=== PATIENT | female | born 1970 | race Caucasian/White ===

== ENCOUNTER 2019-10-16 14:07 | Emergency (ER) | payer BC, OTHER ==
[~2019-10-16] VITALS: Ht 157.5 cm; Wt 119.3 kg
[~2019-10-16 14:07] MED LIST: CEFD300 PO; Diflucan100 MG PO; HYDACE5 PO; IBUP400 PO; NITROFURANTOIN; NORCO; PROGESTERONE; VENL75ER
[2019-10-16] MEDS ORDERED: Norco 10-325 T1 EACH PO (16:31)
== END 2019-10-16 16:48 | disposition home or self-care (01) ==
LOC: ER 14:07
DX: S01.511A Laceration without foreign body of lip, initial encounter (principal); G43.909 Migraine, unspecified, not intractable, without status migrainosus; Z79.899 Other long term (current) drug therapy; W01.0XXA Fall on same level from slipping, tripping and stumbling without subsequent striking against object, initial encounter
CPT/HCPCS: 12011; 99282-25

== ENCOUNTER 2021-01-28 14:33 | Emergency (ER) | payer BC ==
[~2021-01-28] VITALS: Ht 160 cm; Wt 135.2 kg
[~2021-01-28 14:33] MED LIST changes: +Norco 10-325 T1 EACH PO; +OMEP20ER PO; +SERT100 PO
[2021-01-28 15:28] LABS: BASOPHILS ABSOLUTE AUTO 0.02 K/mm3 (0.00-0.23); BASOPHILS PERCENT AUTO 0 % (0-2); EOSINOPHILS PERCENT AUTO 1 % (0-6); Hematocrit 35.2 % (33.0-51.0); Hemoglobin 10.7 g/dL (11.5-16.0); IMMATURE GRAN ABSOLUTE AUTO 0.05 K/mm3 (0.00-0.10); IMMATURE GRAN PERCENT AUTO 1 % (0-1); LYMPHOCYTES ABSOLUTE AUTO 1.13 K/mm3 (0.84-5.20); LYMPHOCYTES PERCENT AUTO 11 % (21-46); MONOCYTES ABSOLUTE AUTO 0.67 K/mm3 (0.16-1.47); MONOCYTES PERCENT AUTO 6 % (4-13); Mean Corpuscular HGB 25.7 pg (26.0-34.0); Mean Corpuscular HGB Conc 30.4 g/dL (31.5-36.5); Mean Corpuscular Volume 84 fL (80-100); Mean Platelet Volume 8.4 fL (9.1-12.4); NEUTROPHILS ABSOLUTE AUTO 8.75 K/mm3 (1.96-9.15); NEUTROPHILS PERCENT AUTO 82 % (41-73); Platelet Count 471 K/mm3 (150-400); RDW Coefficient Variation 15.4 % (11.7-14.2); RDW Standard Deviation 46.8 fL (35.1-46.3); Red Blood Cell Count 4.17 M/mm3 (3.80-5.20); White Blood Cell Count 10.72 K/mm3 (4.00-11.30)
[2021-01-28 15:34] LABS: Alanine Aminotransfer (ALT/SGP 31 U/L (12-78); Albumin/Globulin Ratio 0.6 (0.8-1.8); Alk Phos 165 U/L (50-136); Anion Gap 7 mmol/L (6-16); Aspartate Aminotrans (AST/SGOT 30 U/L (12-37); Bilirubin, Total 0.3 mg/dL (0.1-1.0); Blood Urea Nitrogen 17 mg/dL (8-24); Bun/Creatinine Ratio 25.7 (12.0-20.0); CO2, Blood 31 mmol/L (21-32); Calcium, Blood 9.2 mg/dL (8.5-10.1); Chloride, Blood 104 mmol/L (98-108); Creatinine, Blood 0.66 mg/dL (0.40-1.00); Globulin, Blood 4.7 g/dL (2.2-4.0); Glomerular Filtration Rate >60 (60-); Glucose, Blood 121 mg/dL (70-99); Potassium, Blood 3.5 mmol/L (3.5-5.5); Sodium, Blood 142 mmol/L (136-145); Total Protein, Blood 7.7 g/dL (6.4-8.2)
[2021-01-28] MEDS ORDERED: HYDCHL25 PO (17:00)
== END 2021-01-28 17:01 | disposition home or self-care (01) ==
LOC: ER 14:33
PROVIDERS: Physician Assistant
DX: R60.0 Localized edema (principal); Z79.899 Other long term (current) drug therapy
CPT/HCPCS: 36415; 71046; 80053; 83880; 84484; 85025; 85379; 93005; 93010; 93970; 99284-25

== ENCOUNTER 2021-12-26 03:49 | Inpatient (IN) | payer BC ==
[~2021-12-26] VITALS: Ht 157.5 cm; Wt 150.4 kg
[~2021-12-26 03:49] MED LIST changes: +HYDCHL25 PO
[2021-12-26] MEDS ORDERED: METAXALONE800 M1 PO (04:21)
[2021-12-26] MEDS ORDERED: PRED20 PO (04:21)
[2021-12-26] MEDS ORDERED: PREGABALIN25 MG PO (04:21)
[2021-12-26] MEDS ORDERED: LOSA50 PO (04:21)
[2021-12-26] MEDS ORDERED: HYDROCODONE-AC1 EAC7 PO (04:23)
[2021-12-26 05:37] LABS: BASOPHILS ABSOLUTE AUTO 0.03 K/mm3 (0.00-0.23); BASOPHILS PERCENT AUTO 0 % (0-2); EOSINOPHILS ABSOLUTE AUTO 0.05 K/mm3 (0.00-0.68); EOSINOPHILS PERCENT AUTO 0 % (0-6); Hematocrit 42.5 % (33.0-51.0); Hemoglobin 13.2 g/dL (11.5-16.0); IMMATURE GRAN ABSOLUTE AUTO 0.08 K/mm3 (0.00-0.10); IMMATURE GRAN PERCENT AUTO 1 % (0-1); LYMPHOCYTES ABSOLUTE AUTO 0.89 K/mm3 (0.84-5.20); LYMPHOCYTES PERCENT AUTO 6 % (21-46); MONOCYTES ABSOLUTE AUTO 0.82 K/mm3 (0.16-1.47); MONOCYTES PERCENT AUTO 6 % (4-13); Mean Corpuscular HGB 26.1 pg (26.0-34.0); Mean Corpuscular HGB Conc 31.1 g/dL (31.5-36.5); Mean Corpuscular Volume 84 fL (80-100); Mean Platelet Volume 9.2 fL (9.1-12.4); NEUTROPHILS ABSOLUTE AUTO 12.82 K/mm3 (1.96-9.15); NEUTROPHILS PERCENT AUTO 87 % (41-73); Platelet Count 334 K/mm3 (150-400); RDW Coefficient Variation 16.2 % (11.7-14.2); RDW Standard Deviation 49.8 fL (35.1-46.3); Red Blood Cell Count 5.05 M/mm3 (3.80-5.20); White Blood Cell Count 14.69 K/mm3 (4.00-11.30)
[2021-12-26 05:46] LABS: Anion Gap 7 mmol/L (6-16); Blood Urea Nitrogen 19 mg/dL (8-24); Bun/Creatinine Ratio 27.6 (12.0-20.0); CO2, Blood 27 mmol/L (21-32); CPK Creatine Kinase 356 U/L (26-193); Calcium, Blood 9.3 mg/dL (8.5-10.1); Chloride, Blood 104 mmol/L (98-108); Creatinine, Blood 0.69 mg/dL (0.40-1.00); Glomerular Filtration Rate >60 (60-); Glucose, Blood 104 mg/dL (70-99); Potassium, Blood 3.4 mmol/L (3.5-5.5); Sodium, Blood 138 mmol/L (136-145)
[2021-12-26 06:04] LABS: Creatine Kinase MB 1.9 ng/mL (0.0-3.6); Creatine Kinase MB Index 0.5 (0.0-4.0)
[2021-12-26 07:50] LABS: International Normalized Ratio 1.02; Prothrombin Time Results 10.7 Sec (9.7-11.5)
--- NOTE | 2021-12-26 09:14 | NUR ---
12/26/21 0914 John Winslow MULTIPLE ANTIBOTICS GIVEN IN ED BKA PROCEDURE CHANGED TO I&D
--- NOTE | 2021-12-26 10:24 | NUR ---
ASSUMED CARE: PT ADMITTED FROM ED THEN OR FOR I AND D OF LEFT CALF. RN REMOVED DRESSING AND TOOK PICTURES OF PT'S WOUND, REDNESS DEMARCATED. VALVE ASSEMBLER CONSULT ON PT WELL AND VALVE ASSEMBLER CAME TO SEE PT WITH PLANS TO TRANSFER TO HIGHER LEVEL OF CARE. DR KAUR WORKING ON CALLING OTHER FACILITIES. CIRCUMFERENCE OF ANKLE AND CALF DONE TO KEEP TRACK OF CHANGES. NO OPEN WOUND NOTED BESIDE SURGICAL SITE. PT STATES SHE HAS CHRONIC CRACKS IN HEELS THAT HAS BEEN PRESENT FOR YEARS REBEKA RN AT BEDSIDE PLACING PICC AT THIS TIME. HOSPITALIST IN ROOM TO SEE PT AT THIS TIME. PT CURRENTLY SINUS TACH AT 103 AND ON 2L O2. DRY COUGH NOTED BUT NOT PRODUCTIVE.
--- NOTE | 2021-12-26 11:31 | NUR ---
CHECKED ON PT AND MARKED AREA OF LEG WHERE CIRCUMFERENCES WERE TAKEN. CIRCUMFERENCES WERE UNCHANGED BUT REDNESS TO LEG HAS GOTTEN BRIGHTER. DOES NOT APPEAR TO HAVE SPREAD AND PT DOES NOT C/O WORSENING PAIN. DR KAUR MADE AWARE. NO NEW ORDERS AT THIS TIME.
--- NOTE | 2021-12-26 13:30 | NUR ---
DR BRINK CAME TO SEE PT AND VIEWED PT'S LEFT LEG. STATES THAT LEG DOES NOT LOOK MUCH DIFFERENT THAN IN OR. DR MADE AWARE THAT REDNESS HAS EXPLANDED BEYOND DEMARCATION OF THIGH AND BOTTOM OF FOOT. DISCUSSED WITH DR KAUR WELL. DR KAUR AWARE OF CURRENT VITALS AND WANTS PT TO STILL RECIEVE ALBUMIN. DR NOTIFIED OF LACTIC ACID WELL.
--- NOTE | 2021-12-26 18:38 | NUR ---
SHIFT SUMMARY: PT'S WOUND DEMARCATED WITH PICTURES IN CHART. HAVE BEEN MONITORING COLOR AND CHANGES TO WOUND. MEDICATED FOR HEADACHE X1. WOUND DRESSING CHANGED X1. DR BRINK CAME TO SEE PT AND HAS EVALUATED CHANGES AND PLANS TO MONITOR PT IN AM. VSS. NO ACUTE NEEDS AT THIS TIME.
--- NOTE | 2021-12-26 20:02 | NUR ---
ASSUMED CARE PATIENT LYING IN BED AWAKE AND ON CELL PHONE. GREETS STAFF UPON ENTERING ROOM. LR INF @ 125ML/HR TO EARNEST PICC LINE. 20G TO RT HAND PATENT AND FLUSHED WITH 10ML NS. PATIENT IS ABLE TO TURN SELF TO HIGH SIDES IN BED. LAROSE PATENT AND DRAINING TO GRAVITY. WOUND DRESSING OF ABD PADS AND COBAN TO LLE INCISION FROM I&D REPLACED AT 1630-TO BE CHANGED ONCE PER SHIFT. VS REMAIN STABLE AT THIS TIME W/ HR 90'S-100'S, SBP 100'S-110'S, MAPS 70'S-80'S, SPO2 GREATER THAN 92%. BEDSIDE REPORT COMPLETED WITH CONCETTA ALVAREZ. LLE SWELLING AND REDNESS ASSESSED AND REMARKED WITH WHERE HAD ALREADY ASSESSED. PATIENT HAS NO REPORTS OF PAIN IN THE LIMB.
--- NOTE | 2021-12-26 20:29 | NUR ---
WOUND ASSESSMENT NO CHANGES TO OUTLINES OR PULSES ON LLE. ANKLE MEASURMENT 11IN AND CALF MEAUREMENT 19IN-UNCHANGED FROM PREVIOUS MEASURMENT. TEMP 99.9F TEMPORAL.
--- NOTE | 2021-12-26 22:11 | NUR ---
DRESSING CHANGE/WOUND ASSESSMENT L DP PULSE DECREASED FROM FAINT TO DOPPLER, PT REMAINS BY DOPPLER. PURPLE DISCOLORATION TO INSIDE OF FOOT DARKENING. CAP REFILL IN THAT SPOT ABSENT. PATIENT DENIES PAIN. TEMP 99.9F TEMPORAL. VSS ON 2L NC. NO SPREADING OF REDNESS NOTED. SEROSANGUINOUS DRAINAGE PRSENT FROM LATERAL INCISION. DRESSING CHANGED USING 3 ABD PADS AND COBAN. DRIFLO UNDERNEATH LEG REPLACE.
--- NOTE | 2021-12-27 00:09 | NUR ---
WOUND ASSESSMENT REDNESS, SWELLING, AND PULSES REMAIN UNCHANGED. TEMP INCREASED TO 100.2F TEMPORAL. A&O X 4. SENSATION UNCHANGED.
[2021-12-27 05:20] LABS: BASOPHILS ABSOLUTE AUTO 0.03 K/mm3 (0.00-0.23); BASOPHILS PERCENT AUTO 0 % (0-2); EOSINOPHILS ABSOLUTE AUTO 0.01 K/mm3 (0.00-0.68); EOSINOPHILS PERCENT AUTO 0 % (0-6); Hematocrit 26.2 % (33.0-51.0); IMMATURE GRAN ABSOLUTE AUTO 0.21 K/mm3 (0.00-0.10); IMMATURE GRAN PERCENT AUTO 2 % (0-1); LYMPHOCYTES ABSOLUTE AUTO 0.97 K/mm3 (0.84-5.20); LYMPHOCYTES PERCENT AUTO 8 % (21-46); MONOCYTES ABSOLUTE AUTO 0.99 K/mm3 (0.16-1.47); MONOCYTES PERCENT AUTO 8 % (4-13); Mean Corpuscular HGB 26.1 pg (26.0-34.0); Mean Corpuscular HGB Conc 30.5 g/dL (31.5-36.5); Mean Corpuscular Volume 86 fL (80-100); Mean Platelet Volume 9.2 fL (9.1-12.4); NEUTROPHILS ABSOLUTE AUTO 9.78 K/mm3 (1.96-9.15); NEUTROPHILS PERCENT AUTO 81 % (41-73); Platelet Count 218 K/mm3 (150-400); RDW Coefficient Variation 16.7 % (11.7-14.2); RDW Standard Deviation 52.5 fL (35.1-46.3); Red Blood Cell Count 3.06 M/mm3 (3.80-5.20); White Blood Cell Count 11.99 K/mm3 (4.00-11.30)
--- NOTE | 2021-12-27 05:25 | NUR ---
SHIFT SUMMARY PULSE IN LT DP FAINT TO PALPATION AT BEGINNING OF SHIFT; SINCE THEN HAS DECREASED TO DOPPLER AND MAINATINED. LT PT PULSE BY DOPPLER T/O SHIFT. NO CHANGES TO SPREADING REDNESS OUTSIDE OF DEMARCATION LINES. WOUND DRESSING CHANGED DURING SHIFT. LAROSE REMAINED PATENT DRAINING YELLOW CLOUDY URINE. NO BM DURING SHIFT. PATIENT REMAINED NPO DESPITE ORAL MEDICATINS. MAX TEMP 101.5F WITH TYLENOL 650MG PO GIVEN; TEMP DECREASED TO 99'SF. WHEN PATIENT FELL ASLEEP SPO2 DECREASEDTO 80'S- 2L NC PLACED ON PATIENT. LR STILL INF @ 125ML/HR TO EARENST PICC LINE. NO OTHER MAJOR CHANGES DURING SHIFT.
[2021-12-27 05:35] LABS: Alanine Aminotransfer (ALT/SGP 34 U/L (12-78); Albumin, Blood 2.9 g/dL (3.4-5.0); Albumin/Globulin Ratio 0.9 (0.8-1.8); Alk Phos 61 U/L (50-136); Anion Gap 4 mmol/L (6-16); Aspartate Aminotrans (AST/SGOT 30 U/L (12-37); Bilirubin, Total 0.6 mg/dL (0.1-1.0); Blood Urea Nitrogen 10 mg/dL (8-24); Bun/Creatinine Ratio 13.9 (12.0-20.0); CO2, Blood 29 mmol/L (21-32); Chloride, Blood 109 mmol/L (98-108); Creatinine, Blood 0.72 mg/dL (0.40-1.00); Globulin, Blood 3.2 g/dL (2.2-4.0); Glomerular Filtration Rate >60 (60-); Glucose, Blood 102 mg/dL (70-99); Potassium, Blood 3.1 mmol/L (3.5-5.5); Sodium, Blood 142 mmol/L (136-145); Total Protein, Blood 6.1 g/dL (6.4-8.2); Vancomycin, Trough 15.4 ug/mL (5.0-10.0)
--- NOTE | 2021-12-27 07:15 | NUR ---
Assumed care of pt at 0700 from Deana Renee RN. Pt A&O x 4. Answers questions. Follows commands. Verbalizes needs. Pleasant and cooperative with care. SpO2 90% or greater with 3 LPM NC. SR per monitor. BP stable. LLE not as red as this RN noted during previous day shift. Ankle measurement 10.25 inches, which is decrease from previously notated 11 inches on white board. LLE pulses identified with doppler. Pt states that she is not currently having any pain to LLE. States low back pain. Bed in lowest position. Call light in reach. Pt denies need at this time.
[2021-12-27 09:18] LABS: Hematocrit 26.7 % (33.0-51.0); Hemoglobin 8.2 g/dL (11.5-16.0)
--- NOTE | 2021-12-27 13:41 | NUR ---
All providers have been in to see patient. Dr Smart aware of drop in H/H, states he is not concerned that patient is bleeding into leg. States to continue with dressing changes of ABD and coban QSHIFT, or more often if needed. States PT/OT may be started for patient and weightbearing as tolerated for LLE. States pt may transfer to PCU if rest of care team is okay with it. Pt is now on regular diet. Home [place] added back to medication regmien. Pt worked with physical therapy and was able to stand using walker and 2 person assist. Physical therapy states that patient is able to stand and transfer from bed to chair or commode if she needs to. Dr Pierce states plan to recheck H/H at 1500, will evaluate transfer out of ICU afterwards.
[2021-12-27 15:33] LABS: Hematocrit 26.8 % (33.0-51.0); Hemoglobin 8.3 g/dL (11.5-16.0)
--- NOTE | 2021-12-27 18:02 | NUR ---
SUMMARY Pt is now PCU status. Neuro: A&O x 4. Answers questions. Follows commands. Verbalizes needs. Pleasant and cooperative with care. Numbness to anterior left leg and dorsal left foot, unchanged from initial assessment. Musculoskeletal: Worked with physical therapy today, tolerated well. Mobilizes with one person and walker. Sat in chair for 2 hours today. Respiratory: Clear in upper lobes, diminished otherwise. SpO2 90% or greater room air. Dry, nonproductive cough. Cardiac: ST per monitor. BP stable. Pulses identifyable on BLE, LLE with doppler which is unchaged from this AM. Capillary refill less than 3 seconds. GI: Hypoactive BT. Pt did not have BM this shift. Tolerating regular diet well. : Palma in place draining clear yellow urine Skin: Unchanged from initial assessment. Psych: Pt updating her family using personal phone.
[2021-12-28 04:35] LABS: BASOPHILS ABSOLUTE AUTO 0.06 K/mm3 (0.00-0.23); BASOPHILS PERCENT AUTO 0 % (0-2); EOSINOPHILS ABSOLUTE AUTO 0.14 K/mm3 (0.00-0.68); EOSINOPHILS PERCENT AUTO 1 % (0-6); Hemoglobin 8.1 g/dL (11.5-16.0); IMMATURE GRAN ABSOLUTE AUTO 0.45 K/mm3 (0.00-0.10); IMMATURE GRAN PERCENT AUTO 3 % (0-1); LYMPHOCYTES ABSOLUTE AUTO 1.06 K/mm3 (0.84-5.20); LYMPHOCYTES PERCENT AUTO 6 % (21-46); MONOCYTES ABSOLUTE AUTO 1.01 K/mm3 (0.16-1.47); MONOCYTES PERCENT AUTO 6 % (4-13); Mean Corpuscular HGB 26.8 pg (26.0-34.0); Mean Corpuscular HGB Conc 31.2 g/dL (31.5-36.5); Mean Corpuscular Volume 86 fL (80-100); Mean Platelet Volume 9.2 fL (9.1-12.4); NEUTROPHILS ABSOLUTE AUTO 14.17 K/mm3 (1.96-9.15); NEUTROPHILS PERCENT AUTO 84 % (41-73); NRBC ABSOLUTE 0.03 K/mm3 (0.00-0.02); NRBC Auto 0.2 /100 WBC (0.0-0.2); Platelet Count 233 K/mm3 (150-400); RDW Coefficient Variation 16.7 % (11.7-14.2); RDW Standard Deviation 53.1 fL (35.1-46.3); Red Blood Cell Count 3.02 M/mm3 (3.80-5.20); White Blood Cell Count 16.89 K/mm3 (4.00-11.30)
[2021-12-28 04:52] LABS: Anion Gap 3 mmol/L (6-16); Blood Urea Nitrogen 11 mg/dL (8-24); Bun/Creatinine Ratio 14.7 (12.0-20.0); CO2, Blood 29 mmol/L (21-32); Calcium, Blood 8.3 mg/dL (8.5-10.1); Chloride, Blood 108 mmol/L (98-108); Creatinine, Blood 0.75 mg/dL (0.40-1.00); Glomerular Filtration Rate >60 (60-); Glucose, Blood 115 mg/dL (70-99); Potassium, Blood 3.2 mmol/L (3.5-5.5); Sodium, Blood 140 mmol/L (136-145)
--- NOTE | 2021-12-28 07:15 | NUR ---
Assumed care of pt at 0700. Report received from Rosana HYLTON. Pt A&O x 4. Answers questions. Follows commands. Verbalizes needs. Pt is pleasant and cooperative with care. Pt on room air while awake. SR per monitor. BP stable. Bed in lowest position. Call light in reach. Pt denies need at this time.
--- NOTE | 2021-12-28 11:52 | NUR ---
Dr Elam in to see patient. Provider cleansed wound with peroxide and changed dressing. Provider orders for dressing to be changed more frequently than once per shift. Patient worked with physical therapy and ambulated to bathroom with assistance. Pt sitting up in chair at this time.
[2021-12-28 14:05] LABS: Vancomycin, Trough 17.6 ug/mL (5.0-10.0)
--- NOTE | 2021-12-28 18:02 | NUR ---
SUMMARY Pt is now PCU status. Neuro: A&O x 4. Answers questions. Follows commands. Verbalizes needs. Pleasant and cooperative with care. Numbness to anterior left leg and dorsal left foot, unchanged from initial assessment. Musculoskeletal: Worked with physical therapy today, tolerated well. Mobilizes independently between recliner and bed. Asks for assitance with toileting. Pt has walking boot now for ambulation per orders from Dr Smart. Respiratory: Clear in upper lobes, diminished otherwise. SpO2 90% or greater room air. Dry, nonproductive cough. Cardiac: SR per monitor. BP stable. Pulses identifyable on BLE, LLE with doppler which is unchaged from this AM. Capillary refill less than 3 seconds. GI: Hypoactive BT. Pt did not have BM this shift. Tolerating regular diet well. : Palma in place draining clear yellow urine Skin: Unchanged from initial assessment. Dressing changes for LLE more frequent, every 8 hours, per orders from Dr Smart. Dressed with ABD pad, Kerlex, and Coban. Psych: Pt updating her family using personal phone. Visited with family members outside window.
--- NOTE | 2021-12-29 00:39 | NUR ---
LL LEG DRESSING CHANGED AT 0000. C/D/I
[2021-12-29 03:45] LABS: BASOPHILS ABSOLUTE AUTO 0.03 K/mm3 (0.00-0.23); BASOPHILS PERCENT AUTO 0 % (0-2); EOSINOPHILS ABSOLUTE AUTO 0.26 K/mm3 (0.00-0.68); EOSINOPHILS PERCENT AUTO 2 % (0-6); Hematocrit 26.6 % (33.0-51.0); Hemoglobin 8.2 g/dL (11.5-16.0); IMMATURE GRAN ABSOLUTE AUTO 0.57 K/mm3 (0.00-0.10); IMMATURE GRAN PERCENT AUTO 4 % (0-1); LYMPHOCYTES ABSOLUTE AUTO 1.15 K/mm3 (0.84-5.20); LYMPHOCYTES PERCENT AUTO 8 % (21-46); MONOCYTES ABSOLUTE AUTO 0.84 K/mm3 (0.16-1.47); MONOCYTES PERCENT AUTO 6 % (4-13); Mean Corpuscular HGB 26.5 pg (26.0-34.0); Mean Corpuscular HGB Conc 30.8 g/dL (31.5-36.5); Mean Corpuscular Volume 86 fL (80-100); Mean Platelet Volume 9.1 fL (9.1-12.4); NEUTROPHILS ABSOLUTE AUTO 11.18 K/mm3 (1.96-9.15); NEUTROPHILS PERCENT AUTO 80 % (41-73); NRBC ABSOLUTE 0.02 K/mm3 (0.00-0.02); NRBC Auto 0.1 /100 WBC (0.0-0.2); Platelet Count 277 K/mm3 (150-400); RDW Coefficient Variation 16.6 % (11.7-14.2); RDW Standard Deviation 52.7 fL (35.1-46.3); White Blood Cell Count 14.03 K/mm3 (4.00-11.30)
[2021-12-29 03:59] LABS: Anion Gap 6 mmol/L (6-16); Blood Urea Nitrogen 12 mg/dL (8-24); Bun/Creatinine Ratio 14.6 (12.0-20.0); CO2, Blood 27 mmol/L (21-32); Calcium, Blood 8.5 mg/dL (8.5-10.1); Chloride, Blood 108 mmol/L (98-108); Creatinine, Blood 0.82 mg/dL (0.40-1.00); Glomerular Filtration Rate >60 (60-); Glucose, Blood 114 mg/dL (70-99); Potassium, Blood 3.3 mmol/L (3.5-5.5); Sodium, Blood 141 mmol/L (136-145)
--- NOTE | 2021-12-29 10:29 | NUR ---
0700: SBAR FROM NIGHT RN. PT RESTING IN ROOM, CALL LIGHT IN REACH, NO DISTRESS NOTED. [id number]: ASSISTED PT TO AMBULATE WITHIN ROOM. PT USED RESTROOM, LARGE BOWEL MOVEMENT, ASSISTED PT WITH PERINEAL CARE PER REQUEST. PT ASSISTED BACK TO BED. SURGEON AT BEDSIDE TO EVALUATE WOUND. CHANGED WOUND, PER MD SHOULD BE Q12HR DRESSING CHANGES. 1030: SBAR TO COMMERCIAL LITIGATION ATTORNEY.
--- NOTE | 2021-12-29 11:58 | NUR ---
1145: PT BROUGHT TO PCU ROOM 5 WITH PERSONAL BELONGINGS. THIS RN PROGRAMMED PUMPS AT PCU FOR CONTINUITY OF IVF/ABX. PT TOLERATED WELL.
--- NOTE | 2021-12-29 16:04 | NUR ---
END OF SHIFT: PATIENT ARRIVED FROM ICU TODAY. REPORT WAS RECIVED FROM Jaden HODGE RN, PATIENT HAS BEEN AFEVRILE, DENIES CHEST PAIN, SOB, PAIN AT THE SURGICAL SITE. PATIENT IS S/P DAY THREE DRESSING AND PHOTOS PREFORMED 12/29/21. PATIENT HAS CHRONIC PAIN WHICH IS MEDICATED WITH NORCO Q6 WHICH SHE REALLY ONLY TAKES UP TO THREE TIMES A DAY. WHICH IS STATED HOME DOSE. PATIENT IS COVID POSITIVE, HOWEVER IS ON RA AND SATURATING 98% OR GREATER UNLESS SHE IS COUGHING, WHICH IS MEDICATED PER EMAR. LLE SURGICAL SITE AROUND THE ENITRE CIRCUMFRANCE OF THE LEFT CALF. NONPITTING EDEMA IN THE LEFT ANKLE, WHICH IS SLIGHTLY WORSE THAN PREVIOUS PHOTOS. REDDNESS DECREASED AT ADMIT WAS UP TO HER GROIN, AND REDNESS NOW IS TO KNEE/MURGUIA. DECREASED SENSATION IN THAT FOOT, FAINT PULSES BILATERALLY. BRISK CAP REFILL. PATIENT IN RECLINER WITH LLE ELEVATED. SCD'S TO RIGHT CALF, STARTED TODAY. RECIVING MULTIPLE DOSES OF ANTIBIOTICS VIA IV THROUGH PICC ON THE RIGHT. WILL CONTINUE TO MONITOR.
[2021-12-30 05:15] LABS: Hematocrit 28.6 % (33.0-51.0); Hemoglobin 8.8 g/dL (11.5-16.0); Mean Corpuscular HGB 26.5 pg (26.0-34.0); Mean Corpuscular HGB Conc 30.8 g/dL (31.5-36.5); Mean Corpuscular Volume 86 fL (80-100); Mean Platelet Volume 9.5 fL (9.1-12.4); NRBC ABSOLUTE 0.03 K/mm3 (0.00-0.02); NRBC Auto 0.2 /100 WBC (0.0-0.2); Platelet Count 355 K/mm3 (150-400); RDW Coefficient Variation 16.5 % (11.7-14.2); RDW Standard Deviation 51.9 fL (35.1-46.3); Red Blood Cell Count 3.32 M/mm3 (3.80-5.20); White Blood Cell Count 12.51 K/mm3 (4.00-11.30)
[2021-12-30 05:35] LABS: Anion Gap 6 mmol/L (6-16); Blood Urea Nitrogen 12 mg/dL (8-24); Bun/Creatinine Ratio 15.6 (12.0-20.0); CO2, Blood 27 mmol/L (21-32); Calcium, Blood 8.6 mg/dL (8.5-10.1); Chloride, Blood 108 mmol/L (98-108); Creatinine, Blood 0.77 mg/dL (0.40-1.00); Glomerular Filtration Rate >60 (60-); Glucose, Blood 108 mg/dL (70-99); Potassium, Blood 3.7 mmol/L (3.5-5.5); Sodium, Blood 141 mmol/L (136-145)
[2021-12-30 06:25] LABS: BASOPHILS PERCENT MAN 0 % (0-2); METAMYELOCYTE ABSOLUTE MAN 0.12 K/mm3 (0.00-0.00)
[2021-12-30 06:28] LABS: BAND PERCENT MAN 3 % (0-8); EOSINOPHILS ABSOLUTE MAN 0.37 K/mm3 (0.00-0.68); EOSINOPHILS PERCENT MAN 3 % (0-6); LYMPHOCYTES ABSOLUTE MAN 1.75 K/mm3 (0.84-5.20); LYMPHOCYTES PERCENT MAN 14 % (21-46); METAMYELOCYTE PERCENT MAN 1 % (0-0); MONOCYTES ABSOLUTE MAN 0.25 K/mm3 (0.16-1.47); MONOCYTES PERCENT MAN 2 % (4-13); SEG NEUTROPHILS PERCENT MAN 77 % (41-73); TOTAL CELLS COUNTED 100
--- NOTE | 2021-12-30 06:36 | NUR ---
SHIFT SUMMARY: PATIENT'S VSS, NO PAIN IN LLE, CHRONIC PAIN IN BACK. PATIENT AMBULATES WELL TO TOILET WITH FWW. BILATERAL EDEMA, PAS ON RIGHT CALF AND COMPRESSION BANDAGE ON LEFT. PATIENT REPORTS SHE CAN FEEL PRESSURE ON BOTTOM OF LEFT FOOT BUT CAN'T FEEL PRESSURE ON TOP OF FOOT. MEDICATED PER EMAR. PATIENT HAS LOOSE STOOLS R/T ANTIBIOTIC TREATMENT. GAVE COUGH SYRUP IN AM FOR PERSISTENT DRY COUGH. PICC DRAWS AND FLUSHES. NO ADVERSE EVENTS THIS SHIFT. WILL CONTINUE TO MONITOR AND REPORT TO ONCOMING RN.
[2021-12-30] MEDS ORDERED: BANATROL PLUS1 EAC1 PO (10:14)
[2021-12-30] MEDS ORDERED: VISBIOME 112.51 EACH PO (10:14)
[2021-12-30] MEDS ORDERED: CEPH500 PO (10:14)
--- NOTE | 2021-12-30 18:26 | NUR ---
dishcarge summary: orhteo/ pt/ot, and hosp all agreed to discharge patient with an apppointment with dr tamayo tomorrow. patient denies chest pain, sob. was on RA, wheeled out via wheelcahiar by RAZOR SHARPENER. patients wound was dressed by ordavis and RN.patient had clear understanding of dc instructions, no questions comments or concerns. picc was dc'd WNL. surgical site had decreasing redness and edema still present.
== END 2021-12-30 12:45 | disposition home health service (06) | DRG 853 ==
LOC: ER 03:49 → SURS 03:50 → ER 07:00 → ICUW 09:01 → PCU 12-29 11:45
PROVIDERS: Family Medicine; Internal Medicine; Internal Medicine Critical Care Medicine; Nurse Practitioner Acute Care; Student in an Organized Health Care Education/Training Program; ADMIT Orthopaedic Surgery
PROC: 8E0ZXY6 Isolation (ICD-10-PCS; 2021-12-26)
PROC: 0JBM0ZZ Excision of Left Upper Leg Subcutaneous Tissue and Fascia, Open Approach (ICD-10-PCS; principal; 2021-12-26 07:00)
DX: A41.9 Sepsis, unspecified organism (principal); U07.1 COVID-19; M72.6 Necrotizing fasciitis; L03.116 Cellulitis of left lower limb; E66.2 Morbid (severe) obesity with alveolar hypoventilation; Z68.43 Body mass index [BMI] 50.0-59.9, adult; E87.2 Acidosis; D64.89 Other specified anemias; E87.6 Hypokalemia; R65.20 Severe sepsis without septic shock; I10 Essential (primary) hypertension; M54.9 Dorsalgia, unspecified; G89.29 Other chronic pain; G43.909 Migraine, unspecified, not intractable, without status migrainosus; Z87.442 Personal history of urinary calculi; Z79.52 Long term (current) use of systemic steroids; Z79.899 Other long term (current) drug therapy; Z98.890 Other specified postprocedural states; Z90.49 Acquired absence of other specified parts of digestive tract
CPT/HCPCS: 36415; 36569; 71045; 73701; 80048; 80053; 80202; 82550; 82553; 83605; 83735; 84703; 85014; 85018; 85025; 85610; 85730; 86140; 86141; 86850; 86900; 86901; 87040; 88305; 88331; 94660; 94762; 96365-59; 96368; 96375-59; 97110; 97162; 97166; 97530; 97535; 99285-25; A9270; C1751; J1100; J1170; J1885; J2250; J2370; J2405; J2543; J2704; J3010; J3370; J3480; J7030; J7050; J7120; P9046; Q9967

== ENCOUNTER 2022-01-07 09:11 | Day surgery (SDC) | payer BC ==
[~2022-01-07 09:11] MED LIST changes: +BANATROL PLUS1 EAC1 PO; +CEPH500 PO; +HYDROCODONE-AC1 EAC7 PO; +LOSA50 PO; +METAXALONE800 M1 PO; +PRED20 PO; +PREGABALIN25 MG PO; +VISBIOME 112.51 EACH PO
== END 2022-01-07 22:56 | disposition home or self-care (01) ==
LOC: WOUND 09:11
DX: L03.116 Cellulitis of left lower limb (principal); G47.30 Sleep apnea, unspecified; I10 Essential (primary) hypertension; M19.90 Unspecified osteoarthritis, unspecified site; K21.9 Gastro-esophageal reflux disease without esophagitis; E66.01 Morbid (severe) obesity due to excess calories; Z68.43 Body mass index [BMI] 50.0-59.9, adult; I73.9 Peripheral vascular disease, unspecified; I87.2 Venous insufficiency (chronic) (peripheral); R60.0 Localized edema; M21.372 Foot drop, left foot; Z86.16 Personal history of COVID-19
CPT/HCPCS: G0463

== ENCOUNTER 2022-01-14 06:02 | Day surgery (SDC) | payer BC | END 2022-01-14 23:54 | disposition home or self-care (01) | LOC: WOUND 06:02 | DX: L03.116 Cellulitis of left lower limb (principal); I73.9 Peripheral vascular disease, unspecified; I87.2 Venous insufficiency (chronic) (peripheral); M21.372 Foot drop, left foot | CPT/HCPCS: G0463 ==

== ENCOUNTER 2022-01-16 11:54 | Inpatient (IN) | payer BC ==
[~2022-01-16] VITALS: Ht 157.5 cm; Wt 146.5 kg
[2022-01-16 13:07] LABS: Alanine Aminotransfer (ALT/SGP 31 U/L (12-78); Albumin, Blood 3.7 g/dL (3.4-5.0); Albumin/Globulin Ratio 0.7 (0.8-1.8); Alk Phos 139 U/L (50-136); Anion Gap 9 mmol/L (6-16); Aspartate Aminotrans (AST/SGOT 38 U/L (12-37); BASOPHILS ABSOLUTE AUTO 0.04 K/mm3 (0.00-0.23); BASOPHILS PERCENT AUTO 0 % (0-2); Bilirubin, Total 1.1 mg/dL (0.1-1.0); Blood Urea Nitrogen 15 mg/dL (8-24); Bun/Creatinine Ratio 17.7 (12.0-20.0); CO2, Blood 26 mmol/L (21-32); Calcium, Blood 9.6 mg/dL (8.5-10.1); Chloride, Blood 99 mmol/L (98-108); Creatinine, Blood 0.85 mg/dL (0.40-1.00); EOSINOPHILS ABSOLUTE AUTO 0.06 K/mm3 (0.00-0.68); EOSINOPHILS PERCENT AUTO 0 % (0-6); Globulin, Blood 5.6 g/dL (2.2-4.0); Glomerular Filtration Rate >60 (60-); Glucose, Blood 120 mg/dL (70-99); Hematocrit 39.7 % (33.0-51.0); Hemoglobin 11.9 g/dL (11.5-16.0); IMMATURE GRAN ABSOLUTE AUTO 0.13 K/mm3 (0.00-0.10); IMMATURE GRAN PERCENT AUTO 1 % (0-1); LYMPHOCYTES ABSOLUTE AUTO 2.19 K/mm3 (0.84-5.20); LYMPHOCYTES PERCENT AUTO 12 % (21-46); MONOCYTES ABSOLUTE AUTO 1.17 K/mm3 (0.16-1.47); MONOCYTES PERCENT AUTO 6 % (4-13); Mean Corpuscular HGB 25.7 pg (26.0-34.0); Mean Corpuscular Volume 86 fL (80-100); NEUTROPHILS ABSOLUTE AUTO 14.74 K/mm3 (1.96-9.15); NEUTROPHILS PERCENT AUTO 81 % (41-73); Platelet Count 413 K/mm3 (150-400); Potassium, Blood 3.7 mmol/L (3.5-5.5); RDW Coefficient Variation 16.4 % (11.7-14.2); Red Blood Cell Count 4.63 M/mm3 (3.80-5.20); Sodium, Blood 134 mmol/L (136-145); Total Protein, Blood 9.3 g/dL (6.4-8.2); White Blood Cell Count 18.33 K/mm3 (4.00-11.30)
[2022-01-16 13:15] LABS: International Normalized Ratio 1.1; Prothrombin Time Results 11.5 Sec (9.7-11.5)
[2022-01-16 13:58] LABS: Influenza A, PCR NEGATIVE (NEGATIVE); Influenza B, PCR NEGATIVE (NEGATIVE); Resp Syncytial Virus, PCR NEGATIVE (NEGATIVE)
[2022-01-16 13:59] LABS: SARS-Cov-2 (COVID-19) PCR, MMC POSITIVE (NEGATIVE)
[2022-01-17 01:25] LABS: Source, Urine Clean Catch
[2022-01-17 01:43] LABS: Bilirubin, Urine Neg (Neg); Blood, Urine 1+ (Neg); Glucose Qualitative, Urine Neg (Neg); Ketones, Urine 1+ (Neg); Leukocyte Esterase, Urine Neg (Neg); Nitrite, Urine Neg (Neg); Protein, Urine 1+ (Neg); Specific Gravity, Urine 1.025 (1.003-1.022); Urobilinogen, Urine NORM (Normal)
[2022-01-17 01:50] LABS: Amorphous Light (0-Heavy); Appearance, Urine Hazy (Clear); Bacteria Few /hpf; Color, Urine Yellow (P-Yellow); Mucus Light (0-Heavy); Squamous Epithelial Cells Mod /hpf (Few); White Blood Cells, Urine Rare /hpf (0-5)
--- NOTE | 2022-01-17 05:37 | NUR ---
SHIFT SUMMARY PATIENT ALERT AND ORIENTED. MEDICATED PER EMAR FOR PAIN. HAD NO COMPLAINTS OF SHORTNESS OF BREATH. NO ACUTE ISSUES NOTED OVERNIGHT. CALL LIGHT WITHIN REACH. REPORT GIVEN TO ONCOMING RN.
[2022-01-17 05:55] LABS: BASOPHILS ABSOLUTE AUTO 0.05 K/mm3 (0.00-0.23); BASOPHILS PERCENT AUTO 0 % (0-2); EOSINOPHILS ABSOLUTE AUTO 0.16 K/mm3 (0.00-0.68); EOSINOPHILS PERCENT AUTO 1 % (0-6); Hematocrit 35.7 % (33.0-51.0); Hemoglobin 10.6 g/dL (11.5-16.0); IMMATURE GRAN ABSOLUTE AUTO 0.06 K/mm3 (0.00-0.10); IMMATURE GRAN PERCENT AUTO 1 % (0-1); LYMPHOCYTES ABSOLUTE AUTO 1.23 K/mm3 (0.84-5.20); LYMPHOCYTES PERCENT AUTO 9 % (21-46); MONOCYTES ABSOLUTE AUTO 0.86 K/mm3 (0.16-1.47); MONOCYTES PERCENT AUTO 7 % (4-13); Mean Corpuscular HGB 25.5 pg (26.0-34.0); Mean Corpuscular HGB Conc 29.7 g/dL (31.5-36.5); Mean Corpuscular Volume 86 fL (80-100); Mean Platelet Volume 8.6 fL (9.1-12.4); NEUTROPHILS ABSOLUTE AUTO 10.71 K/mm3 (1.96-9.15); NEUTROPHILS PERCENT AUTO 82 % (41-73); Platelet Count 308 K/mm3 (150-400); RDW Coefficient Variation 16.2 % (11.7-14.2); RDW Standard Deviation 50.6 fL (35.1-46.3); Red Blood Cell Count 4.16 M/mm3 (3.80-5.20); White Blood Cell Count 13.07 K/mm3 (4.00-11.30)
[2022-01-17 06:07] LABS: Alanine Aminotransfer (ALT/SGP 27 U/L (12-78); Albumin/Globulin Ratio 0.6 (0.8-1.8); Alk Phos 107 U/L (50-136); Anion Gap 6 mmol/L (6-16); Aspartate Aminotrans (AST/SGOT 26 U/L (12-37); Bilirubin, Total 0.8 mg/dL (0.1-1.0); Blood Urea Nitrogen 16 mg/dL (8-24); Bun/Creatinine Ratio 22.9 (12.0-20.0); CO2, Blood 27 mmol/L (21-32); Calcium, Blood 8.9 mg/dL (8.5-10.1); Chloride, Blood 106 mmol/L (98-108); Globulin, Blood 4.7 g/dL (2.2-4.0); Glomerular Filtration Rate >60 (60-); Glucose, Blood 114 mg/dL (70-99); Potassium, Blood 3.8 mmol/L (3.5-5.5); Sodium, Blood 139 mmol/L (136-145); Total Protein, Blood 7.7 g/dL (6.4-8.2)
--- NOTE | 2022-01-17 11:06 | NUR ---
PATIENT IS A AND O 4X AND WAS ABLE TO AMBULATE WELL WITH WALKER. PATIENTS REDNESS HAS DECREASED SIGNIFICANTLY SINCE YESTERDAY. PATIENT STILL HAS DRAINAGE THAT IS SEROUS/PURELENT THAT SATURATES KRELIX GAUZE UP TO ABOUT AN ORANGE SIZE OF DRESSING.
--- NOTE | 2022-01-17 13:27 | NUR ---
Pt. is sitting up and eating lunch. Pt. welcomes my visit. Pt. is pleasant but is unsettled by the uncertainties of her diagnosis. Listen empathetically and devlop rapport. Explore personal issues of babs and belief. Pt. displays evidence of a confidence that God is in control of her health. [place] for Pt. Pt. verbalizes gratitude forthe spiritual care visit.
[2022-01-17 13:28] LABS: Vancomycin, Trough 18.4 ug/mL (5.0-10.0)
--- NOTE | 2022-01-18 04:10 | NUR ---
SHIFT SUMMARY NO ACUTE CHANGES THIS EVENING. DRESSING TO LLE REMAINED C/D/I THROUGHOUT THE NIGHT. PT MEDICATED X 1 FOR CHRONIC BACK PAIN. PT AFEBRILE. VITAL SIGNS STABLE. REDNESS AND SWELLING APPEAR IMPROVED TO LLE. PT HAD AN UNEVENTFUL NIGHT.
[2022-01-18 05:13] LABS: BASOPHILS ABSOLUTE AUTO 0.03 K/mm3 (0.00-0.23); BASOPHILS PERCENT AUTO 0 % (0-2); EOSINOPHILS ABSOLUTE AUTO 0.39 K/mm3 (0.00-0.68); EOSINOPHILS PERCENT AUTO 5 % (0-6); Hematocrit 32.6 % (33.0-51.0); Hemoglobin 9.6 g/dL (11.5-16.0); IMMATURE GRAN ABSOLUTE AUTO 0.08 K/mm3 (0.00-0.10); IMMATURE GRAN PERCENT AUTO 1 % (0-1); LYMPHOCYTES ABSOLUTE AUTO 1.32 K/mm3 (0.84-5.20); LYMPHOCYTES PERCENT AUTO 16 % (21-46); MONOCYTES ABSOLUTE AUTO 0.67 K/mm3 (0.16-1.47); MONOCYTES PERCENT AUTO 8 % (4-13); Mean Corpuscular HGB 25.5 pg (26.0-34.0); Mean Corpuscular HGB Conc 29.4 g/dL (31.5-36.5); Mean Corpuscular Volume 87 fL (80-100); Mean Platelet Volume 9.2 fL (9.1-12.4); NEUTROPHILS ABSOLUTE AUTO 5.79 K/mm3 (1.96-9.15); NEUTROPHILS PERCENT AUTO 70 % (41-73); Platelet Count 281 K/mm3 (150-400); RDW Coefficient Variation 15.9 % (11.7-14.2); RDW Standard Deviation 50.4 fL (35.1-46.3); Red Blood Cell Count 3.76 M/mm3 (3.80-5.20); White Blood Cell Count 8.28 K/mm3 (4.00-11.30)
[2022-01-18 05:36] LABS: Anion Gap 7 mmol/L (6-16); Blood Urea Nitrogen 17 mg/dL (8-24); Bun/Creatinine Ratio 27.4 (12.0-20.0); CO2, Blood 25 mmol/L (21-32); Calcium, Blood 8.6 mg/dL (8.5-10.1); Chloride, Blood 109 mmol/L (98-108); Creatinine, Blood 0.62 mg/dL (0.40-1.00); Glomerular Filtration Rate >60 (60-); Glucose, Blood 117 mg/dL (70-99); Potassium, Blood 3.9 mmol/L (3.5-5.5); Sodium, Blood 141 mmol/L (136-145)
--- NOTE | 2022-01-18 15:30 | NUR ---
DISCHARGE PT A&O X4 DURING DC DIRECTION. SON PRESENT @ BEDSIDE DURING DC AND PROVIDING TRANSPORT TO HOME. PROVIDED W/ WRITTEN AND VERBAL DIRECTION. VERIFIED UNDERSTANDING. MEDS FAXED TO [facility] [address]. IV D/ROLAN. TRANSPORTED VIA OUT TO [facility] W/ PERSONAL BELONGINGS IN [place].
--- NOTE | 2022-01-18 18:26 | NUR ---
SHIFT SUMMARY PT A&O X4 & IN PLEASENT MOOD T/O SHIFT. PT RESTED IN BED T/O SHIFT, SPOUSE @ BEDSIDE T/O MOST OF SHIFT. DRESSING CHANGED, WOUND CLEANED PER PT REQUEST. PT PAIN MEDICATED PER EMAR. VSS. CALL LIGHT W/IN REACH AND ABLE TO CALL FOR NEEDS. PT VERBALIZED THAT SHE WAS A LITTLE UPSET ABOUT THE ESTIMATED STAY TIME TILL THURSDAY PER CONVERSATION, "BUT KNOWS THIS IS THE BEST PLACE FOR HER."
--- NOTE | 2022-01-19 04:53 | NUR ---
SHIFT SUMMARY PT HAD A GOOD NIGHT. CONTINUES TO REPORT IMPROVEMENT TO LLE. DRESSING REMAINED C/D/I. MEDICATED FOR CHRONIC BACK PAIN PER EMAR. PT SLEPT WELL THIS EVENING. NO ACUTE CHANGES. VITAL SIGNS STABLE.
--- NOTE | 2022-01-19 20:04 | NUR ---
END OF SHIFT SUMMARY PATIENT PAIN CONTROLLED WITH PRN PAIN MEDICATION, USE OF K-PAD, AND REPOSITIONING BETWEEN THE BED AND THE RECLINER. PATIENT ELEVATED LLE THROUGHOUT THE SHIFT. PATIENT INDEPENDENT WITH WALKER. DRESSING CHANGED. MINIMAL SERIOUS DISCHARGE. SKIN CONTINUES TO HAVE SOME LIGHT REDNESS AROUND THE INCISION. PATIENT REPORTS THAT IT LOOKS IMPROVED. PATIENT REPORTS THAT SHE HAS MINIMAL PAIN RELATED TO THE WOUND.
--- NOTE | 2022-01-20 04:50 | NUR ---
PT AWAKE THIS MORNING. PT ALERT AND OREINTED, NOT MONITORED, PULSES ARE 2/1 LE THREADY BUT NOT EASILY OBLITERATED. PT LEFT LEG ELEVATED TO REDUCE SWELLING. PT DOES NOT COMPLAIN OF SOB OR N/V. PT DID HAVE PAIN OVERNIGHT MEDICATED PER EMAR. OTHERWISE NO ACUTE EVENTS OVERNIGHT.
[2022-01-20] MEDS ORDERED: Acetaminophen650 M1 PO (13:17)
[2022-01-20] MEDS ORDERED: VISBIOME 112.51 EACH PO (13:19)
[2022-01-20] MEDS ORDERED: AMOX875 PO (13:19)
--- NOTE | 2022-01-20 13:55 | NUR ---
DISCHARGE SUMMARY DISCHARGE INSTRUCTIONS EXPLAINED WITH PATIENT AND FAMILY MEMBER AT BEDSIDE. INSTRUCTED PATIENT TO CALL TO FOLLOW UP WITH PCP IN ONE WEEK AND TO FOLLOW UP WITH WOUND CARE CLINIC TOMORROW 01/21. ALL QUESTIONS ANSWERED. PT WHEELED OUT VIA WHEELCHAIR W/ WRINKLE CHASER.
--- NOTE | 2022-01-20 16:25 | NUR ---
Patient is a [facility] patient who was transferred to [facility] on due to severe sepsis Patient discharged with resumption of home health orders. Gathered supporting documentation for resumption (face sheet, discharge order, med list, and H&P) and faxed to [facility] for review. No further interventions required. Polly Chen Referral Liaison
== END 2022-01-20 14:07 | disposition home or self-care (01) | DRG 862 ==
LOC: ER 11:54 → MEDS 14:23 → ENPENDDIS 01-20 10:47 → MEDS 01-20 14:07
PROVIDERS: Internal Medicine; Pharmacist; Physician Assistant; ADMIT Internal Medicine
DX: T81.49XA Infection following a procedure, other surgical site, initial encounter (principal); R65.20 Severe sepsis without septic shock; A41.51 Sepsis due to Escherichia coli [E. coli]; U07.1 COVID-19; E87.2 Acidosis; L03.116 Cellulitis of left lower limb; E87.1 Hypo-osmolality and hyponatremia; I11.0 Hypertensive heart disease with heart failure; G89.29 Other chronic pain; M54.9 Dorsalgia, unspecified; R74.01 Elevation of levels of liver transaminase levels; E66.01 Morbid (severe) obesity due to excess calories; Z98.890 Other specified postprocedural states; G47.33 Obstructive sleep apnea (adult) (pediatric); K21.9 Gastro-esophageal reflux disease without esophagitis; F32.A Depression, unspecified; Z95.1 Presence of aortocoronary bypass graft; Z79.899 Other long term (current) drug therapy
CPT/HCPCS: 0241U; 36415; 73590; 80048; 80053; 80202; 81001; 83605; 85025; 85610; 85730; 86141; 87040; 87077; 87086; 87186; 93005; 93010; 93971; 94760; 96365; 96366; 96375; 99285-25; A9270; J0690; J1650; J1885; J2543; J3370; J7030; J7050

== ENCOUNTER 2022-01-21 08:00 | Day surgery (SDC) | payer BC ==
[~2022-01-21 08:00] MED LIST changes: +AMOX875 PO; +Acetaminophen650 M1 PO
[2022-08-05] MEDS ORDERED: [UNRECOGNIZED DRUG - CODE] PO (15:28)
[2022-08-05] MEDS ORDERED: OMEP20ER PO (15:29)
[2022-08-05] MEDS ORDERED: Adipex-P37.5 M1 PO (15:29)
== END 2022-01-21 23:59 | disposition home or self-care (01) ==
LOC: WOUND 08:00
DX: L03.116 Cellulitis of left lower limb (principal); S81.802D Unspecified open wound, left lower leg, subsequent encounter; I73.9 Peripheral vascular disease, unspecified; R60.0 Localized edema; M21.372 Foot drop, left foot; I87.2 Venous insufficiency (chronic) (peripheral)
CPT/HCPCS: G0463

== ENCOUNTER 2022-01-28 02:19 | Day surgery (SDC) | payer BC | END 2022-01-28 23:35 | disposition home or self-care (01) | LOC: WOUND 02:19 | DX: S81.802D Unspecified open wound, left lower leg, subsequent encounter (principal); L03.116 Cellulitis of left lower limb; I73.9 Peripheral vascular disease, unspecified; R60.0 Localized edema; M21.372 Foot drop, left foot; I87.2 Venous insufficiency (chronic) (peripheral) | CPT/HCPCS: G0463 ==

== ENCOUNTER 2022-02-04 02:33 | Day surgery (SDC) | payer BC | END 2022-02-04 22:55 | disposition home or self-care (01) | LOC: WOUND 02:33 | DX: T81.31XA Disruption of external operation (surgical) wound, not elsewhere classified, initial encounter (principal); L03.116 Cellulitis of left lower limb; I73.9 Peripheral vascular disease, unspecified; R60.0 Localized edema; M21.372 Foot drop, left foot; I87.2 Venous insufficiency (chronic) (peripheral) | CPT/HCPCS: A9270 ==

== ENCOUNTER 2022-02-11 08:00 | Day surgery (SDC) | payer BC | END 2022-02-11 23:59 | disposition home or self-care (01) | LOC: WOUND 08:00 | DX: L03.116 Cellulitis of left lower limb (principal); S81.802A Unspecified open wound, left lower leg, initial encounter; I73.9 Peripheral vascular disease, unspecified; I87.2 Venous insufficiency (chronic) (peripheral); M21.372 Foot drop, left foot | CPT/HCPCS: G0463 ==

== ENCOUNTER 2022-02-25 02:07 | Day surgery (SDC) | payer BC | END 2022-02-25 23:28 | disposition home or self-care (01) | LOC: WOUND 02:07 | DX: Z09 Encounter for follow-up examination after completed treatment for conditions other than malignant neoplasm (principal); S81.802D Unspecified open wound, left lower leg, subsequent encounter; L03.116 Cellulitis of left lower limb; I73.9 Peripheral vascular disease, unspecified; R60.9 Edema, unspecified; M21.372 Foot drop, left foot; I87.2 Venous insufficiency (chronic) (peripheral) | CPT/HCPCS: G0463 ==

== ENCOUNTER 2022-03-25 01:57 | Day surgery (SDC) | payer BC | END 2022-03-25 23:15 | disposition home or self-care (01) | LOC: WOUND 01:57 | DX: S81.802D Unspecified open wound, left lower leg, subsequent encounter (principal); R60.0 Localized edema; M21.372 Foot drop, left foot; L03.116 Cellulitis of left lower limb; I73.9 Peripheral vascular disease, unspecified; I87.2 Venous insufficiency (chronic) (peripheral) | CPT/HCPCS: G0463 ==